=== PATIENT | female | born 1995 | race Two or more races ===

== ENCOUNTER 2018-10-27 18:08 | Emergency (ER) | payer OTHER ==
[~2018-10-27] VITALS: Ht 160 cm; Wt 64.9 kg
== END 2018-10-28 00:01 | disposition home or self-care (01) ==
LOC: ER 18:08
DX: O20.0 Threatened abortion (principal); O34.81 Maternal care for other abnormalities of pelvic organs, first trimester; N83.291 Other ovarian cyst, right side; Z34.81 Encounter for supervision of other normal pregnancy, first trimester

== ENCOUNTER 2019-04-06 14:30 | Inpatient (IN) | payer OTHER ==
[~2019-04-06] VITALS: Ht 160 cm; Wt 87.5 kg
== END 2019-05-17 10:07 | disposition home or self-care (01) | DRG 807 ==
LOC: OB/GYN 05-12 14:30 → LDR 05-15 08:22 → OB/GYN 05-15 14:00
PROVIDERS: ADMIT Obstetrics & Gynecology
PROC: 10E0XZZ Delivery of Products of Conception, External Approach (ICD-10-PCS; principal; 2019-05-15)
PROC: 0KQM0ZZ Repair Perineum Muscle, Open Approach (ICD-10-PCS; 2019-05-15)
PROC: 4A1HXCZ Monitoring of Products of Conception, Cardiac Rate, External Approach (ICD-10-PCS; 2019-05-15)
PROC: 4A033R1 Measurement of Arterial Saturation, Peripheral, Percutaneous Approach (ICD-10-PCS; 2019-05-15)
DX: O70.1 Second degree perineal laceration during delivery (principal); Z37.0 Single live birth; Z3A.40 40 weeks gestation of pregnancy

== ENCOUNTER 2019-05-14 09:41 | Outpatient (CLI) | payer OTHER | END 2019-05-15 08:23 | disposition still patient (30) | LOC: OBS/DEL 09:41 | DX: O48.0 Post-term pregnancy (principal); Z34.83 Encounter for supervision of other normal pregnancy, third trimester ==

== ENCOUNTER → 2019-05-14 | Emergency (ER) | payer OTHER | END | disposition left against medical advice (07) | LOC: ER 08:20 | DX: Z53.20 Procedure and treatment not carried out because of patient's decision for unspecified reasons (principal) ==